=== PATIENT | female | born 1955 | race Caucasian/White ===

== ENCOUNTER 2017-02-10 11:47 | Emergency (ER) | payer OTHER ==
[~2017-02-10] VITALS: Ht 165.1 cm; Wt 58.2 kg
[2017-02-10 11:55] VITALS: BP 135/81; PULSE 74; RESP 12; O2SAT 99
--- NOTE | 2017-02-10 12:09 | ED.REPORT ---
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 She has pain over the fifth metatarsal. No previous injuries. She is nonweightbearing. She is able to wiggle her toes and denies numbness or tingling. Otherwise healthy. Nursing Notes Stated Complaint: RIGHT FOOT INJURY Chief Complaint: Extremity Trauma Nursing Notes Reviewed: Yes Allergies: Coded Allergies: codeine (Verified Allergy, Unknown, 07/17/16) Scheduled PRN oxyCODONE-Acetaminophen 5-325 mg (oxyCODONE-Acetaminophen 5-325 mg) 1 Each Tablet 1 TAB PO Q6H PRN PRN For Pain General Time Seen by MD: 12:08 Chief Complaint Ankle injury right Hx Obtained From: Patient Arrived By: Walk-in Onset Occurred: Just prior to arrival Symptom Duration: Constant Caused by: Fall on ground Location: : Ankle right Severity: Current: Moderate Severity: Maximum: Moderate Pertinent Negative: Pt denies other symptoms Exacerbated by: Range of motion, Movement Recent Healthcare: No recent doctor visit Similar Sx Previous: No Past Medical History Past Medical History Notes: denies Smoking History Former Smoker Review of Systems Musculoskeletal: Reports: Extremity pain, Extremity swelling Physical Exam Initial Vital Signs Vital Signs (First) Date Time Temp Pulse Resp B/P Pulse Ox O2 Delivery O2 Flow Rate FiO2 02/10/17 11:55 36.8 74 12 135/81 99 Room Air Initial VS: Reviewed, Vital signs normal General/Constitutional: Well-developed, Well-nourished Head / Eyes: Atraumatic, Normocephalic, PERRL Respiratory: Breath sounds normal, Clear to auscultation, No respiratory distress Cardiovascular: Regular rate & rhythm, Heart sounds normal, Intact distal pulses Skin: Warm, Dry, No cyanosis Neurologic: Alert, Oriented, Nonfocal Psychiatric: Mood/affect normal, Behavior normal, Normal thought content Right Ankle: Negative: Swelling present..., Tender lat ligaments..., Tender medial ligaments, Tenderness present... Right Foot: Positive: ROM reduced, Tender base 5th mtarsal, Tenderness present... (Severe) Interpretation & Diagnostics Interpretation & Diagnostics: PROCEDURE: X-RAY RIGHT FOOT COMPLETE, MINIMUM THREE VIEWS ([id number]) INDICATIONS: pain/swelling rt foot/ankle TECHNIQUE: 3 views of the foot were acquired. COMPARISON: [facility], CR, XR ANKLE 3VW RT, 02/10/2017, 12:14. FINDINGS: Bones: Linear lucency traverses the proximal aspect of the fifth metatarsal. Soft tissues: No tibiotalar joint effusion. Achilles tendon appears normal. IMPRESSION: Minimally displaced proximal fifth metatarsal fracture. PROCEDURE: X-RAY RIGHT ANKLE, MINIMUM THREE VIEWS ([id number]) INDICATIONS: pain/swelling rt ankle/foot TECHNIQUE: 3 views of the ankle were acquired. COMPARISON: [facility] , MR, ANKLE RT W/O CONTRAST, 06/10/2005, 7:38. [facility], CR, XR FOOT 3VW RT, 02/10/2017, 12:14. FINDINGS: Bones: The known proximal fifth metatarsal fracture is faintly visualized on the lateral film. Ankle mortise is normally aligned. No suspicious bony lesions. Soft tissues: No tibiotalar joint effusion. Achilles tendon appears normal. IMPRESSION: Suboptimal evaluation of the known proximal fifth metatarsal fracture. Re-Eval/Medical Decision Med Decision/Clinical Course Patient brings in her own long leg walking boot. This looks sufficient for her fifth metatarsal fracture. Discharge & Departure Shift Change Sign-Out Imaging Studies: Imaging discussed Impression: Primary Impression: Fracture of fifth metatarsal bone of right foot Encounter type: initial encounter Fracture type: closed Fracture alignment : displaced Qualified Code: S92.351A - Displaced fracture of fifth metatarsal bone, right foot, initial encounter for closed fracture Disposition: Home Discharge Condition All VS Reviewed: Yes Condition: Stable Patient Instructions: Foot Fracture in Adults (ED) Additional Instructions: Use ibuprofen 600 mg 3 times a day for pain. you May start this in 8 hours. Use Percocet as needed for breakthrough pain. Wear splint and be nonweightbearing until seen by Ortho. Call Saturday for next appointment. Return if pain is severe and intolerable, fevers or worsening condition at all. Apply ice to area to alleviate pain and swelling as well. You may take Tylenol for pain but do not exceed 1 g of acetaminophen every 8 hours. be careful as there is acetaminophen in the Percocet. Referrals: Lizandro Reynolds MD (PCP) Luigi Munoz MD EDSupervising Provider for APC: Alfredo Quinones DO copies to: Luigi Munoz MD, Linnea K ARNP Feb 10, 2017 12:09
--- NOTE | 2017-02-10 12:22 | DRSVH ---
PROCEDURE: X-RAY RIGHT FOOT COMPLETE, MINIMUM THREE VIEWS ([id number]) INDICATIONS: pain/swelling rt foot/ankle TECHNIQUE: 3 views of the foot were acquired. COMPARISON: [facility], CR, XR ANKLE 3VW RT, 02/10/2017, 12:14. FINDINGS: Bones: Linear lucency traverses the proximal aspect of the fifth metatarsal. Soft tissues: No tibiotalar joint effusion. Achilles tendon appears normal. IMPRESSION: Minimally displaced proximal fifth metatarsal fracture. Dictated by: Delaney Harry M.D. on 02/10/2017 at 12:20 Approved by: Delaney Harry M.D. on 02/10/2017 at 12:20
--- NOTE | 2017-02-10 12:32 | DRSVH ---
PROCEDURE: X-RAY RIGHT ANKLE, MINIMUM THREE VIEWS ([id number]) INDICATIONS: pain/swelling rt ankle/foot TECHNIQUE: 3 views of the ankle were acquired. COMPARISON: [facility] , MR, ANKLE RT W/O CONTRAST, 06/10/2005, 7:38. [facility], CR, XR FOOT 3VW RT, 02/10/2017, 12:14. FINDINGS: Bones: The known proximal fifth metatarsal fracture is faintly visualized on the lateral film. Ankle mortise is normally aligned. No suspicious bony lesions. Soft tissues: No tibiotalar joint effusion. Achilles tendon appears normal. IMPRESSION: Suboptimal evaluation of the known proximal fifth metatarsal fracture. Dictated by: Delaney Harry M.D. on 02/10/2017 at 12:30 Approved by: Delaney Harry M.D. on 02/10/2017 at 12:31
[2017-02-10] MEDS ORDERED: OXYC1TAB24 PO (12:52)
[2017-02-10 13:38] VITALS: BP 132/78; PULSE 70; RESP 14; O2SAT 99
== END 2017-02-10 13:41 | disposition home or self-care (01) ==
LOC: SED 11:47
DX: S92.351A Displaced fracture of fifth metatarsal bone, right foot, initial encounter for closed fracture (principal); W18.30XA Fall on same level, unspecified, initial encounter; Y93.9 Activity, unspecified; Y92.9 Unspecified place or not applicable; Y99.9 Unspecified external cause status; Z87.891 Personal history of nicotine dependence; Z88.5 Allergy status to narcotic agent
CPT/HCPCS: 73610; 73630; 96372; 99284; J1885